=== PATIENT | female | born 1995 | race Two or more races ===

== ENCOUNTER 2022-06-01 10:12 | Emergency (ER) | payer OTHER ==
[~2022-06-01] VITALS: Ht 160 cm; Wt 64.4 kg
[2022-06-01] MEDS ORDERED: PRENATAL + DHA1 EAC1 PO (10:26)
== END 2022-06-01 12:56 | disposition home or self-care (01) ==
LOC: ER 10:12
DX: O20.9 Hemorrhage in early pregnancy, unspecified (principal); Z3A.01 Less than 8 weeks gestation of pregnancy

== ENCOUNTER 2022-08-03 13:54 | Emergency (ER) | payer OTHER ==
[~2022-08-03] VITALS: Ht 160 cm; Wt 63.0 kg
[~2022-08-03 13:54] MED LIST: PRENATAL + DHA1 EAC1 PO
== END 2022-08-03 20:59 | disposition home or self-care (01) ==
LOC: ER 13:54
DX: O20.8 Other hemorrhage in early pregnancy (principal); Z3A.01 Less than 8 weeks gestation of pregnancy